=== PATIENT | male | born 1980 | race Caucasian/White ===

== ENCOUNTER 2016-08-26 22:02 | Inpatient (IN) | payer MEDICARE, MEDICAID ==
[2016-08-26] MEDS ORDERED: SODIUM CHLORIDE 0.9% 500 ML IV STA (22:14)
--- NOTE | 2016-08-26 22:17 | ED ---
General Adult HPI - General Chief complaint: Psychiatric Symptoms Stated complaint: Mental Health Time Seen by Provider: 08/26/16 22:04 Source: patient, police, EMS, RN notes reviewed Mode of arrival: EMS Limitations: no limitations - History of Present Illness Initial comments: Patient is a 36-year-old male presenting to the emergency department for mental health evaluation. Onset of symptoms is unclear. Patient recently went to his sister's. Patient left the house and walked around for over 14 hours. Patient returned with increased bizarre behavior. Patient admits to not taking his medication. Patient refused evaluation and fled again. Patient needed to be brought in police custody. Patient denies any injury. Patient will not answer many questions and will only follow some commands. - Related Data Home Medications Medication Instructions Recorded Confirmed QUEtiapine [SEROquel] 50 mg PO DAILY 08/26/16 08/26/16 Allergies Allergy/AdvReac Type Severity Reaction Status Date / Time No Known Allergies Allergy Unverified 08/26/16 22:49 Review of Systems ROS Statement: Those systems with pertinent positive or pertinent negative responses have been documented in the HPI. ROS Other: All systems not noted in ROS Statement are negative. Constitutional: Denies: fever Eyes: Denies: eye pain ENT: Denies: ear pain Respiratory: Denies: cough Cardiovascular: Denies: chest pain Endocrine: Denies: fatigue Gastrointestinal: Denies: abdominal pain Genitourinary: Denies: dysuria Musculoskeletal: Denies: back pain Skin: Denies: rash Neurological: Denies: headache, weakness Psychiatric: Reports: other (Patient will not answer questions) Past Medical History Past Medical History: Unable to Obtain History of Any Multi-Drug Resistant Organisms: Unobtainable Past Surgical History: Unable to Obtain Past Psychological History: Bipolar, Schizoaffective Disorder Smoking Status: Unknown if ever smoked Past Alcohol Use History: Unable to Obtain Past Drug Use History: Unable to Obtain General Exam Limitations: no limitations General appearance: alert, in no apparent distress Head exam: Present: atraumatic Eye exam: Present: normal appearance, PERRL, EOMI ENT exam: Present: mucous membranes dry Neck exam: Absent: tenderness Respiratory exam: Present: normal lung sounds bilaterally Cardiovascular Exam: Present: regular rate, normal rhythm GI/Abdominal exam: Present: soft. Absent: tenderness Extremities exam: Present: normal inspection Neurological exam: Present: alert, other (Only answer some questions. Limits exam.). Absent: motor sensory deficit Psychiatric exam: Present: other (Limited evaluation) Skin exam: Absent: rash Course Vital Signs 08/26/16 08/27/16 22:11 04:13 Temperature 99.4 F 98 F Pulse Rate 110 H 73 Respiratory 20 18 Rate Blood Pressure 125/68 114/57 O2 Sat by Pulse 97 98 Oximetry Medical Decision Making - Medical Decision Making Patient was seen by mental health services, who will admit. Positive clinical certificate completed. - Lab Data Result diagrams: 08/26/16 22:43 08/26/16 22:43 Lab Results 08/26/16 08/26/16 08/27/16 Range/Units 22:43 22:43 00:42 WBC 7.6 (3.8-10.6) k/uL RBC 4.68 (4.30-5.90) m/uL Hgb 14.8 (13.0-17.5) gm/dL Hct 43.5 (39.0-53.0) % MCV 92.9 (80.0-100.0) fL MCH 31.6 (25.0-35.0) pg MCHC 34.0 (31.0-37.0) g/dL RDW 12.8 (11.5-15.5) % Plt Count 170 (150-450) k/uL Neutrophils % 65 % Lymphocytes % 23 % Monocytes % 5 % Eosinophils % 5 % Basophils % 1 % Neutrophils # 5.0 (1.3-7.7) k/uL Lymphocytes # 1.7 (1.0-4.8) k/uL Monocytes # 0.4 (0-1.0) k/uL Eosinophils # 0.4 (0-0.7) k/uL Basophils # 0.1 (0-0.2) k/uL Sodium 140 (137-145) mmol/L Potassium 3.7 (3.5-5.1) mmol/L Chloride 107 (98-107) mmol/L Carbon Dioxide 21 L (22-30) mmol/L Anion Gap 12 mmol/L BUN 13 (9-20) mg/dL Creatinine 1.00 (0.66-1.25) mg/dL Est GFR (MDRD) Af Amer >60 (>60 ml/min/1.73 sqM) Est GFR (MDRD) Non-Af >60 (>60 ml/min/1.73 sqM) Glucose 126 H (74-99) mg/dL Calcium 9.1 (8.4-10.2) mg/dL Urine Opiates Screen Not Detected (NotDetected) Ur Oxycodone Screen Not Detected (NotDetected) Urine Methadone Screen Not Detected (NotDetected) Ur Propoxyphene Screen Not Detected (NotDetected) Ur Barbiturates Screen Not Detected (NotDetected) U Tricyclic Antidepress Not Detected (NotDetected) Ur Phencyclidine Scrn Not Detected (NotDetected) Ur Amphetamines Screen Not Detected (NotDetected) U Methamphetamines Scrn Not Detected (NotDetected) U Benzodiazepines Scrn Not Detected (NotDetected) Urine Cocaine Screen Not Detected (NotDetected) U Marijuana (THC) Screen Not Detected (NotDetected) Serum Alcohol <10 mg/dL Disposition Clinical Impression: Acute psychosis, Acute schizophrenia Disposition: TRANSFER TO PSYCH HOSP/UNIT
[2016-08-26 22:57] LABS: Basophils # (A) 0.1 k/uL (0-0.2); Basophils % (A) 1 %; CH 32.5; CHCM 35.1; Eosinophils # (A) 0.4 k/uL (0-0.7); Eosinophils % (A) 5 %; HCT 43.5 % (39.0-53.0); HDW 2.45; HGB 14.8 gm/dL (13.0-17.5); Luc # (Auto) 0.12; Luc % (Auto) 2; Lymphocytes # (A) 1.7 k/uL (1.0-4.8); Lymphocytes % (A) 23 %; MCH 31.6 pg (25.0-35.0); MCV 92.9 fL (80.0-100.0); Mean Platelet Volume 8.3; Monocytes # (A) 0.4 k/uL (0-1.0); Monocytes % (A) 5 %; Neutrophils % (A) 65 %; RBC 4.68 m/uL (4.30-5.90); RDW 12.8 % (11.5-15.5); WBC 7.6 k/uL (3.8-10.6); WBC (Perox) 7.41
[2016-08-26 23:02] LABS: Alcohol <10 mg/dL; Anion Gap 12 mmol/L; Blood Urea Nitrogen 13 mg/dL (9-20); Calcium 9.1 mg/dL (8.4-10.2); Carbon Dioxide 21 mmol/L (22-30); Chloride 107 mmol/L (98-107); Glucose 126 mg/dL (74-99); Non-African American GFR(MDRD) >60 (>60 ml/min/1.73 sqM); Potassium 3.7 mmol/L (3.5-5.1); Sodium 140 mmol/L (137-145)
[2016-08-27] MEDS ORDERED: MAGNESIUM HYDROXIDE 2,400 MG/10 ML CUP PO PRN (06:15)
[2016-08-27] MEDS: LORazepam 1 MG TAB PO PRN (09:31)
--- NOTE | 2016-08-27 12:39 | P.HP ---
Psychiatric H&P - . H&P Date: 08/27/16 History & Physical: IDENTIFYING DATA: Mr. Hughes is a 36-year-old male who has a history of schizophrenia. HISTORY OF PRESENT ILLNESS: He presented to unit involuntarily. His sister completed a petition/application for hospitalization. The petition read "he quit taking his medications in May 2016. Since then he hears voices telling him to kill himself. He disappears for days and when found he is disoriented and not sure where he is. He sees things that are not there. He is constantly paranoid about everything. He doesn't sleep for days." He would not cooperate with the examination in the emergency department. According to the ED physician's note he attempted to leave the emergency room. He would not make eye contact with the nurse to completed the EPS assessment. The nurse noted in her assessment that he appeared to be responding to internal stimuli. I spoke with his sister on the telephone. She stated that answer Her house 3 days ago. Prior to that he was living with his parents in [facility]. She knows that he stopped taking his medication in May of last year. He's been disorganized confused and paranoid. He stated that he can't return to his mother's house until he receives treatment. When he is consistently taking medication and he "does very well." She is unaware of her of his prior medications or where he had been receiving mental health treatment; she believes it with [facility]. PAST PSYCHIATRIC HISTORY: According to the EPS nurse, he has a history of schizophrenia and multiple past psychiatric hospitalizations. He stated that he has had multiple psychiatric hospitalizations. She believes he was first admitted to a psychiatric hospital when he was 20 or 22 years old. He was enrolled with [facility] until he moved to [facility] through with his sister. PAST MEDICAL HISTORY: She is unaware of medical problems. ALLERGIES: NO KNOWN DRUG ALLERGIES SUBSTANCE USE HISTORY: She stated that he used heroin in the past. She does not think that he has been using heroin lately. He was in [place] for the treatment of his substance use problems. FAMILY PSYCHIATRIC/SUBSTANCE USE HISTORY: He is family history of mental illness. Sister stated that she is bipolar. His mother has a history of bipolar illness and a paternal uncle had a history of schizophrenia. s LEGAL HISTORY: She is unaware of history of legal problems. SOCIAL HISTORY: His born and raised in an intact family. He has 3 sisters. One sister lives in [place] any other [place]. His parents are alive and living together in [facility]. He is from his . They've been "for several years". They have no children together. She believes that he graduated from high school. MENTAL STATUS EXAM: He presented as a restless and disheveled appearing 36-year- old male. He was randomly pacing the unit and ensuring and on other patients and staff. He had no distinguishing features or prominent physical abnormalities. He had a distressed facial expression. He is alert and oriented to person. He was restless and agitated. He had a normal gait and station. His speech was not spontaneous. His affect was dysphoric. I was unable to fully evaluate his thought contact. His thought processes appeared disorganized and incoherent. He appeared to be responding to internal stimuli.. STRENGTHS: Good apparent physical health, supportive family, stable income WEAKNESSES: Poor compliance with mental health care IMPRESSION: He is a 36-year-old male has a history of a schizophrenia. He presented to the unit involuntarily with signs and symptoms of acute psychosis. According to the history obtained by the admitting staff he is been noncompliant with prescribed medications. His speech is of inpatient basis with a combination of multiple therapy and antipsychotic medications. 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 Obtain treatment records from [facility]. Completed the second clinical certificate and proceed with the application for involuntary hospitalization. Continue Geodon 20 mg IM twice a day when necessary for agitation and/or lorazepam 1 mg by mouth/IM every 8 hours when necessary for agitation or Anxiety. He would most likely benefit from a long- acting injectable antipsychotic medication. Allergies Allergy/AdvReac Type Severity Reaction Status Date / Time No Known Allergies Allergy Unverified 08/26/16 22:49 Vital Signs Temp 98 F 08/27/16 04:13 Pulse 79 08/27/16 06:06 Resp 20 08/27/16 06:06 BP 124/64 08/27/16 06:06 Pulse Ox 98 08/27/16 04:13 Intake & Output 08/26/16 08/27/16 08/27/16 18:59 06:59 18:59 Weight 89.721 kg Laboratory Last Values WBC 7.6 k/uL (3.8-10.6) 08/26/16 22:43 RBC 4.68 m/uL (4.30-5.90) 08/26/16 22:43 Hgb 14.8 gm/dL (13.0-17.5) 08/26/16 22:43 Hct 43.5 % (39.0-53.0) 08/26/16 22:43 MCV 92.9 fL (80.0-100.0) 08/26/16 22:43 MCH 31.6 pg (25.0-35.0) 08/26/16 22:43 MCHC 34.0 g/dL (31.0-37.0) 08/26/16 22:43 RDW 12.8 % (11.5-15.5) 08/26/16 22:43 Plt Count 170 k/uL (150-450) 08/26/16 22:43 Neutrophils % 65 % 08/26/16 22:43 Lymphocytes % 23 % 08/26/16 22:43 Monocytes % 5 % 08/26/16 22:43 Eosinophils % 5 % 08/26/16 22:43 Basophils % 1 % 08/26/16 22:43 Neutrophils # 5.0 k/uL (1.3-7.7) 08/26/16 22:43 Lymphocytes # 1.7 k/uL (1.0-4.8) 08/26/16 22:43 Monocytes # 0.4 k/uL (0-1.0) 08/26/16 22:43 Eosinophils # 0.4 k/uL (0-0.7) 08/26/16 22:43 Basophils # 0.1 k/uL (0-0.2) 08/26/16 22:43 Sodium 140 mmol/L (137-145) 08/26/16 22:43 Potassium 3.7 mmol/L (3.5-5.1) 08/26/16 22:43 Chloride 107 mmol/L (98-107) 08/26/16 22:43 Carbon Dioxide 21 mmol/L (22-30) L 08/26/16 22:43 Anion Gap 12 mmol/L 08/26/16 22:43 BUN 13 mg/dL (9-20) 08/26/16 22:43 Creatinine 1.00 mg/dL (0.66-1.25) 08/26/16 22:43 Est GFR (MDRD) Af Amer >60 (>60 ml/min/1.73 sqM) 08/26/16 22:43 Est GFR (MDRD) Non-Af >60 (>60 ml/min/1.73 sqM) 08/26/16 22:43 Glucose 126 mg/dL (74-99) H 08/26/16 22:43 Calcium 9.1 mg/dL (8.4-10.2) 08/26/16 22:43 TSH 2.200 mIU/L (0.465-4.680) 08/26/16 22:43 Urine Opiates Screen Not Detected (NotDetected) 08/27/16 00:42 Ur Oxycodone Screen Not Detected (NotDetected) 08/27/16 00:42 Urine Methadone Screen Not Detected (NotDetected) 08/27/16 00:42 Ur Propoxyphene Screen Not Detected (NotDetected) 08/27/16 00:42 Ur Barbiturates Screen Not Detected (NotDetected) 08/27/16 00:42 U Tricyclic Antidepress Not Detected (NotDetected) 08/27/16 00:42 Ur Phencyclidine Scrn Not Detected (NotDetected) 08/27/16 00:42 Ur Amphetamines Screen Not Detected (NotDetected) 08/27/16 00:42 U Methamphetamines Scrn Not Detected (NotDetected) 08/27/16 00:42 U Benzodiazepines Scrn Not Detected (NotDetected) 08/27/16 00:42 Urine Cocaine Screen Not Detected (NotDetected) 08/27/16 00:42 U Marijuana (THC) Screen Not Detected (NotDetected) 08/27/16 00:42 Serum Alcohol <10 mg/dL 08/26/16 22:43 08/27/16 11:14 08/27/16 12:24 08/27/16 12:32
[2016-08-27] MEDS: NICOTINE 21MG/24HR PATCH TRANSDERM SCH (15:53)
[2016-08-28] MEDS: NICOTINE 21MG/24HR PATCH TRANSDERM SCH (08:03)
[2016-08-28] MEDS ORDERED: WATER FOR INJECTION, STERILE 10 ML IV ONE (12:48)
[2016-08-28] MEDS: ZIPRASIDONE 20 MG VIAL IM PRN (12:49)
[2016-08-28] MEDS: LORazepam 2 MG/ML SYRINGE IM PRN (12:49)
--- NOTE | 2016-08-28 13:38 | P.PN ---
Progress Note - Text SUBJECTIVE: I reviewed the medical record, attempted to interview Mr. Portillo and discuss his treatment and treatment plan during team meeting. He will not stand still to talk. He will not come into my office. He comes to the window at my office door several times during the day and stares. He approached me several times in the hallway asking for a "female razor." He is refusing to take psychotropic medications. OBJECTIVE: He presented as a restless 36-year-old male who is irritable and uncooperative. He spends his time patient hallway and intruding on staff and other patients. His speech is spontaneous but incoherent. His affect is labile. He showed no episodes of behavioral dyscontrol. He didn't express ideas of reference but at times appeared paranoid. His thinking is not organized, coherent and goal directed. He does not appear to be responding to internal stimuli. He received 20 mg of Geodon 1 mg of lorazepam this afternoon after him inappropriately intruding on other patients. ASSESSMENT: He remains grossly psychotic and unchanged from admission. He has no insight into his illness or need for mental health treatment. PLAN: Continue treatment on inpatient unit due to severity of his psychiatric illness and refusal to take psychotropic medications. Involuntary application submitted to probate court and we are waiting the date of the court hearing. Continue Geodon 20 mg IM and/or lorazepam 1 mg IM/by mouth every 8 hours when necessary for agitation. Once we obtain a court order we will begin an antipsychotic that is available as a long-acting injectable.
[2016-08-28 15:12] LABS: Hepatitis B Surface Ag Index 0.07
[2016-08-28 15:17] LABS: Hepatitis B Core IgM Index 0.05
[2016-08-28 15:36] LABS: Hepatitis C Virus IgG Ab Reactive (Negative)
[2016-08-28] MEDS ORDERED: HALOPERIDOL LACTATE 5 MG/ML 1 ML VIAL IM STA (18:49)
[2016-08-28] MEDS ORDERED: LORazepam 2 MG/ML SYRINGE IM STA (18:50)
[2016-08-28] MEDS ORDERED: HALOPERIDOL LACTATE 5 MG/ML 1 ML VIAL ONE (18:52)
[2016-08-28] MEDS: ACETAMINOPHEN TAB 325 MG TAB PO PRN (19:45)
[2016-08-29] MEDS: NICOTINE 21MG/24HR PATCH TRANSDERM SCH (08:41)
[2016-08-29 10:12] LABS: Appearance,Urine Clear (Clear); Bilirubin,Urine Negative (Negative); Glucose,Urine (UA) Negative (Negative); Ketones,Urine Negative (Negative); Leukocyte Esterase,Urine Negative (Negative); Nitrite,Urine Negative (Negative); Protein,Urine Trace (Negative); Specific Gravity,Urine 1.013 (1.001-1.035); UA Billing (MACRO vs. MICRO) CHEM; Urobilinogen,Urine <2.0 mg/dL (<2.0)
[2016-08-29] MEDS: ACETAMINOPHEN TAB 325 MG TAB PO PRN (11:43)
[2016-08-29] MEDS: ZIPRASIDONE 20 MG VIAL IM PRN (12:10)
[2016-08-29] MEDS: LORazepam 2 MG/ML SYRINGE IM PRN (12:11)
--- NOTE | 2016-08-29 16:04 | P.PN ---
Progress Note - Text SUBJECTIVE: I reviewed the medical record, interviewed Mr. Roach and discuss his treatment and treatment plan during team meeting. He has been restless, irritable, intrusive and at times non-directable. He approached me several times during the day and came to the window of my door several times. I am unable to understands his requests because his speech is incoherent. He again declined to start a medication. He stated that he was started taking Haldol "after my court hearing." OBJECTIVE: He presented as a restless 36-year-old male who was casually groomed. He maintained eye contact but didn't appear to attend to the interview. He had a bright facial expression. He was restless and agitated. His speech was spontaneous with increased rate. His affect was labile and at times inappropriate. He did not express ideas reference or paranoid ideation. His thinking was concrete and associations were incoherent and illogical. He did not appear to be responding to internal stimuli. He received 5 mg of haloperidol IM yesterday at 1853 and 20 mg of Geodon IM at 1210 this morning for increasing agitation ASSESSMENT: He remains severely mentally ill showed no significant change in his clinical status since admission. He continues to refuse scheduled dosing of antipsychotic medication. His behaviors at times so disorganized that he requires administration of IM antipsychotic medications and/or benzodiazepines. PLAN: Continue inpatient psychiatric hospitalization for the treatment of acute psychosis and refusal to comply with psychiatric treatment. Discontinue ziprasidone 20 mg IM twice a day when necessary for agitation and begin haloperidol 5 mg IM every 6 hours when necessary for agitation or acute psychosis. Continue lorazepam 1 mg by mouth/IM every 8 hours when necessary for agitation. Continue to talk to him about taking a scheduled dose of an antipsychotic medication. His probate hearing for involuntary hospitalization has been scheduled for 09/03/2016 at 1:30 PM
[2016-08-30] MEDS: MAG HYDROX/AL HYDROX/SIMETH 30 ML CUP PO PRN (03:37)
[2016-08-30] MEDS: NICOTINE 21MG/24HR PATCH TRANSDERM SCH (08:46)
[2016-08-30 11:26] LABS: HIV-1/HIV-2 Ab Screen NONREAC (NON REAC)
--- NOTE | 2016-08-30 15:30 | P.PN ---
Progress Note - Text SUBJECTIVE: I reviewed the medical record, attempted to interview Mr. Roach and discussed his treatment and treatment plan during team meeting. He approached me several times during the day as well as knocked on my door. He repeatedly asked when he would be discharge and appeared as though he did not remember that I told him he has a court hearing next Friday regarding involuntary hospitalization. OBJECTIVE: He presented as casually groomed 36-year-old male who makes intermittent eye contact but does not appear to attend to the interview. He has a labile facial expression consistent with his mood. He is agitated and restless and was often observed pacing the unit. His speech is spontaneous with normal rate and rhythm. His affect is blunted but labile. He does not express suicidal ideation or wishes. He does not respond when I ask questions about psychotic symptoms such as ideas reference, thought insertion, thought broadcasting or thought control. At times he appears paranoid and frightened; other times he appears bright and happy. His thinking is grossly disorganized, incoherent and illogical. He does not appear to be responding to internal stimuli. ASSESSMENT: He remains seriously mentally ill and is shown no response to treatment. He continues to refuse antipsychotic medications. PLAN: Continue inpatient psychiatric hospitalization due to untreated psychosis. Probate hearing is scheduled for 09/03/2016 at 1:30 PM. Begin Haldol 5 mg by mouth daily and document refusal. Continue Haldol 5 mg IM every 6 hours when necessary for agitation and/or lorazepam 1 mg by mouth/IM every 8 hours when necessary for agitation or acute anxiety. Evaluate clinical status and response to treatment daily basis.
[2016-08-30] MEDS: HALOPERIDOL 5 MG TAB PO SCH (15:44)
[2016-08-30] MEDS: LORazepam 1 MG TAB PO PRN (22:01)
[2016-08-31] MEDS: LORazepam 2 MG/ML SYRINGE IM PRN (07:03)
[2016-08-31] MEDS: HALOPERIDOL LACTATE 5 MG/ML 1 ML VIAL IM PRN ×2 (07:03→12:48)
[2016-08-31] MEDS: HALOPERIDOL 5 MG TAB PO SCH (09:42)
[2016-08-31] MEDS: NICOTINE 21MG/24HR PATCH TRANSDERM SCH ×2 (09:42→12:48)
--- NOTE | 2016-08-31 14:46 | P.PN ---
Progress Note - Text Interval history: The patient was seen in library ,still demanding to be discharged ,patient was agitated and irritable at Noon and did require PRN HALDOL AND ATIVAN .He states that he does need to be here "I am not taking medications ,I am not crazy" Mental status exam: The patient is alert he is dressed in street clothing , unkept ,disheveled ,yawning . Eye contact is intermittent. Affect is labile , speech is non spontaneous , denies any current suicidal or homicidal ideation, when asked about psychotic features ,he replied "NOT REALLY ",patient seems sedated from medication ,insight and judgment impaired Plan: The patient will continue on PRN medications till his probate court hearing The patient requires continued psychiatric hospitalization. Vital signs reviewed.
[2016-08-31] MEDS: LORazepam 1 MG TAB PO PRN (17:13)
[2016-09-01] MEDS: HALOPERIDOL 5 MG TAB PO SCH ×2 (08:33→20:26)
[2016-09-01] MEDS: NICOTINE 21MG/24HR PATCH TRANSDERM SCH (08:33)
[2016-09-01] MEDS: LORazepam 1 MG TAB PO PRN (08:34)
--- NOTE | 2016-09-01 10:17 | P.PN ---
Progress Note - Text Interval history: The patient was seen in library ,took his scheduled oral Haldol this morning ,less irritable ,endorses bizarre delusional thinking "I WANT TO HAVE WI-[employer] ,I PAID MY DEBT",still demanding to be discharged but easy to redirect, endorses tiredness and fatigue PER NURSING STAFF: patient was restless and pacing this morning and required PRN ATIVAN Mental status exam: The patient is alert he is dressed in hospital gown,unkept , disheveled ,yawning . Eye contact is intermittent. Affect is blunted,speech is non spontaneous , denies any current suicidal or homicidal ideation , endorses delusional thoughts ,seems responding to internal stimuli ,insight and judgment impaired Plan: Increase scheduled oral Haldol to 5mg BID ,continue PRN Ativan and Haldol for agitation ,court hearing next week The patient requires continued psychiatric hospitalization. Vital signs reviewed.
[2016-09-01] MEDS: MAG HYDROX/AL HYDROX/SIMETH 30 ML CUP PO PRN (14:20)
[2016-09-01] MEDS: LORazepam 2 MG/ML SYRINGE IM PRN (17:05)
[2016-09-01] MEDS: HALOPERIDOL LACTATE 5 MG/ML 1 ML VIAL IM PRN (17:05)
[2016-09-02] MEDS: NICOTINE 21MG/24HR PATCH TRANSDERM SCH (08:45)
[2016-09-02] MEDS: HALOPERIDOL 5 MG TAB PO SCH ×2 (08:45→21:04)
--- NOTE | 2016-09-02 12:57 | P.PN ---
Progress Note - Text SUBJECTIVE: I reviewed the medical record, interviewed Mr. Roach and discuss his treatment and treatment plan during team meeting. He requested to be discharged and talked about his plan to "get my C10 running" and "moved to [place]." He alleged that he has friends with whom he may live in a [facility]. I explained that I cannot discharged today because he has a court hearing tomorrow. After the probate hearing we will begin Haldol decanoate. We may discuss a discharge date after we restart him on the Haldol decanoate. In response to my question about his unwilling to take psychotropic medication he replied that he has "quit smoking." He does not wish to take medications because he wants to be "free from all drugs." OBJECTIVE: He presented as a casually groomed 36-year-old distractable male who was pleasant on approach. He maintained eye contact who had difficulty attending to interview. He had a flat facial expression. He is alert and oriented to person, place and time. He showed no abnormality of psychomotor activity; he was restless and continues to pace the unit. His speech was spontaneous but had a decreased rate and rhythm. He showed poverty of speech and poverty of content of speech. He denied suicidal ideation or wishes. He denied homicidal ideation. He denied depressive cognitions such as hopelessness, helplessness and worthlessness. He did not express ideas reference or paranoid ideation. His thinking was concrete and his associations remaining incoherent and illogical. He denied hallucinations and did not appear to be responding to internal stimuli. He received 1 mg of lorazepam and 5 mg of haloperidol IM yesterday at 1705 for agitation. He took the scheduled 5 mg dose of Haldol yesterday and this morning. The [facility] increased haloperidol 5 mg twice a day over the weekend. ASSESSMENT: He is shown decrease in restlessness but he continues to be distractible, perseverative and confused. Overall he appears severely mentally ill. PLAN: Continue inpatient hospitalization due to continued psychotic symptoms. He has a probate hearing scheduled for tomorrow. Continue current dose of haloperidol 5 mg by mouth twice a day and monitor for side effects. Haloperidol decanoate 50 mg IM after he receives a involuntary treatment order. Continue haloperidol 5 mg IM every 6 hours when necessary for agitation and/ or lorazepam 1 mg by mouth/IM every 8 hours when necessary for agitation. Encourage participation in therapeutic groups and activities. Evaluate clinical status response to treatment on the basis.
[2016-09-02] MEDS: LORazepam 1 MG TAB PO PRN (18:12)
[2016-09-03] MEDS: HALOPERIDOL 5 MG TAB PO SCH ×2 (08:27→22:11)
[2016-09-03] MEDS: NICOTINE 21MG/24HR PATCH TRANSDERM SCH (08:29)
[2016-09-03] MEDS: ACETAMINOPHEN TAB 325 MG TAB PO PRN ×2 (12:56→22:11)
--- NOTE | 2016-09-03 13:55 | P.PN ---
Progress Note - Text SUBJECTIVE: I reviewed the medical record, interviewed Mr. Hughes and discuss his treatment and treatment plan during team meeting. He thought he would be discharged today. He approached me several times inquiring about when he would be discharged. I explained that he has a court hearing this afternoon. After the court hearing we will begin Haldol decanoate then discuss discharge. Later in day he continued to my office with a paper bag and asked "Well, how did the court hearing go?" I explained that he will have his hearing this afternoon and will be present first hand during the hearing. OBJECTIVE: He presented as a casually groomed pleasant 36-year-old male. He maintained eye contact but did not appear to attend to the interview. He had no distinguishing features or prominent physical abnormalities. He had a blunted but bright facial expression. He was restless but not agitated. His speech was spontaneous with normal rate, rhythm and volume. His affect was elevated and appropriate to the circumstances. He denied suicidal or homicidal ideation. He denied depressive cognitions such as hopelessness, helplessness or worthlessness. He ruminated on discharge. He did not express ideas reference or paranoid ideation. His thinking was concrete and associations were not fully coherent or logical. He did not demonstrate blocking. He denied hallucinations and did not appear to be responding to internal stimuli. According to him MAR he was compliant with the both doses of haloperidol yesterday. He went to the probate hearing but decided to waive my testimony and stipulate to the combined treatment order. ASSESSMENT: He is much less agitated, intrusive and impulsive. Overall he remains severely mentally ill but showed a moderate response to treatment. PLAN: Begin haloperidol decanoate 50 mg IM q 28 days first dose today. Continue haloperidol 5 mg by mouth twice a day for now. Encourage participation as much as possible in therapeutic groups and activities. Evaluate clinical status and response to treatment daily basis.
[2016-09-03] MEDS ORDERED: HALOPERIDOL DECANOATE 50 MG/ML 1 ML VIAL IM SCH (14:00)
[2016-09-04] MEDS: LORazepam 1 MG TAB PO PRN ×2 (01:52→09:18)
[2016-09-04] MEDS ORDERED: diphenhydrAMINE 50 MG/ML 1 ML VIAL IM STA (03:13)
[2016-09-04] MEDS: HALOPERIDOL 5 MG TAB PO SCH (09:19)
[2016-09-04] MEDS: NICOTINE 21MG/24HR PATCH TRANSDERM SCH (10:09)
[2016-09-04] MEDS ORDERED: HALOPERIDOL LACTATE 5 MG/ML 1 ML VIAL IM PRN (10:59)
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
[2016-09-04] MEDS ORDERED: LORazepam 2 MG/ML SYRINGE IM PRN (14:21)
[2016-09-04] MEDS ORDERED: BENZOCAINE/MENTHOL LOZENG 1 EACH LOZENGE MUCOUS MEM PRN (15:49)
[2016-09-05] MEDS: LORazepam 1 MG TAB PO PRN (08:02)
[2016-09-05] MEDS: HALOPERIDOL 5 MG TAB PO SCH (08:03)
[2016-09-05] MEDS: NICOTINE 21MG/24HR PATCH TRANSDERM SCH ×2 (08:04→10:39)
--- NOTE | 2016-09-05 13:43 | P.PN ---
Progress Note - Text SUBJECTIVE: I reviewed the medical record, interviewed Mr. Roach and discuss his treatment and treatment plan during team meeting. He received 5 mg of Haldol IM yesterday after refusing oral dose. He took the morning oral dose without incident. He complained about haloperidol. We discussed alternatives and he objected to all other options (for long-acting injectable antipsychotics) including Invega Sustenna, Prolixin Decanoate, Abilify Maintenna. He stated that he only wants to take Ativan; "if I needed an injection give me heroin or ketamine." OBJECTIVE: He presented as a casually groomed 36-year-old male who was pleasant on approach. He maintained eye contact and appeared to attend to interview. He had a blunted facial expression. He showed no abnormality of psychomotor activity. He had no abnormal involuntary movements. His speech was spontaneous with normal rate and volume. His affect was blunted but stable and appropriate. He denied suicidal ideation or wishes. He denied homicidal ideations. He denied depressive cognitions such as hopelessness, helplessness and worthlessness. He ruminated about hospitalization and maintains that he does not need to be in the hospital or require treatment for a mental illness. He did not express ideas reference or paranoid ideation. His thinking is concrete and associations were not coherent or logical. He denied hallucinations and did not appear to be responding to internal stimuli. ASSESSMENT: He appears less restless and intrusive. He has absolutely no insight into his mental illness or need for treatment. PLAN: Continue involuntary hospitalization. Continue haloperidol 5 mg by mouth daily or 5 mg IM if refuses the oral dose. Continue haloperidol decanoate 50 mg IM monthly. Encourage participation in therapeutic groups and activities. Evaluate clinical status response to treatment on a daily basis.
[2016-09-06] MEDS: LORazepam 1 MG TAB PO PRN (05:51)
[2016-09-06] MEDS ORDERED: HALOPERIDOL LACTATE 5 MG/ML 1 ML VIAL IM PRN (07:53)
[2016-09-06] MEDS: HALOPERIDOL 5 MG TAB PO SCH (08:39)
[2016-09-06] MEDS: NICOTINE 21MG/24HR PATCH TRANSDERM SCH (08:39)
--- NOTE | 2016-09-06 13:28 | P.PN ---
Progress Note - Text SUBJECTIVE: I reviewed the medical record, interviewed Joel and discuss his treatment and treatment plan during team meeting. The nurse caught him attempting to cheek his dose of haloperidol this morning. He denied problems; his only concern was discharge. He denied experiencing psychotic symptoms such as auditory or visual hallucinations, ideas of reference, thought insertion, thought broadcasting or thought control. He denied side effects to haloperidol. OBJECTIVE: He presented as a casually groomed 36-year-old male who was pleasant on approach. He maintained eye contact and attended to interview. He had a bright facial expression. He showed no abnormality of psychomotor activity. His speech was spontaneous with normal rate and family and volume. He showed poverty of speech and poverty of content. His affect was blunted but stable and appropriate. He denied suicidal ideation or wishes. He denied homicidal ideation. He denied depressive cognitions such as hopelessness , helplessness and worthlessness. He did not express ideas reference or paranoid ideation. His thinking was concrete but his associations were coherent and logical. He has no awareness or insight to his mental illness or need for mental health treatment. He received 1 mg of lorazepam by mouth this morning for increase agitation. ASSESSMENT: He has no insight or understanding of his illness or need for treatment. Overall he appears moderately mentally ill and is much improved from admission. PLAN: Increase haloperidol to 10 mg daily and administer the second Haldol Decanoate injection early next week then discharged home with recommendation for [facility] aftercare. Nursing to carefully monitor his medication compliance. Encourage participation in therapeutic groups and activities. Evaluate clinical status and response to treatment daily basis.
[2016-09-07] MEDS: NICOTINE 21MG/24HR PATCH TRANSDERM SCH (08:10)
[2016-09-07] MEDS: HALOPERIDOL 5 MG TAB PO SCH (08:10)
[2016-09-07] MEDS: HALOPERIDOL LACTATE 5 MG/ML 1 ML VIAL IM PRN (14:09)
[2016-09-07] MEDS ORDERED: HALOPERIDOL LACTATE 5 MG/ML 1 ML VIAL IM PRN (16:54)
--- NOTE | 2016-09-07 16:56 | P.PN ---
Progress Note - Text SUBJECTIVE: I reviewed the medical record and interviewed Joel. He was again concerned about discharge and requested to be discharged on Friday. I didn't commit to a particular discharge date but told him we would decide on Friday. His only other concern was not being able to smoke cigarettes. He complained of sedation from Haldol. He does not feel restless. He denied auditory or visual hallucinations, ideas reference, thought insertion , thought broadcasting or thought control. OBJECTIVE: He was casually groomed pleasant and cooperative. He maintained eye contact. He showed no abnormality of psychomotor activity. He was not restless or fidgety. He did not demonstrate signs suggestive of akathisia. His speech was spontaneous with decreased rate but normal volume. His affect was blunted but stable and appropriate. He denied suicidal ideation or wishes. He denied homicidal ideation. He denied depressive cognitions such as hopelessness, helplessness and worthlessness. He denied ideas of reference and did not express paranoid ideation. His thinking is very concrete but his associations were coherent and logical. He denied hallucinations and did not appear to be responding to internal stimuli. He received 2 mg of lorazepam by mouth yesterday at 551 for restlessness. ASSESSMENT: He appears mildly mentally ill and he is much improved from admission. He complains of sedation with the current dose of haloperidol but denies other symptoms. PLAN: Decrease Haldol to 5 mg by mouth daily. Continue lorazepam 2 mg by mouth/ IM every 8 hours when necessary for agitation or Anxiety. Administered 50 mg of Haldol Decanoate prior to discharge. Encourage continued participation in therapeutic groups and activities. Evaluate clinical status response to treatment daily basis. Discharge early next week.
[2016-09-08] MEDS: HALOPERIDOL 5 MG TAB PO SCH (08:31)
[2016-09-08] MEDS: NICOTINE 21MG/24HR PATCH TRANSDERM SCH ×2 (08:31→10:44)
[2016-09-08] MEDS: ACETAMINOPHEN TAB 325 MG TAB PO PRN (11:54)
[2016-09-08] MEDS ORDERED: BENZTROPINE 2 MG/2 ML AMP IM STA (14:25)
--- NOTE | 2016-09-08 15:50 | P.PN ---
Progress Note - Text SUBJECTIVE: I reviewed the medical record and interviewed Joel. He asked to "stop taking Haldol". He requested to be described Ativan instead. I explained that my recommendation is that he take an antipsychotic medication that is available as a long-term injectable. I explained the alternatives to Haldol including Prolixin, Invega, Abilify and Risperdal Consta. He Alleged that he is unable to take these alternatives. He denied auditory or visual hallucinations, ideas reference, thought insertion , thought broadcasting or thought control. OBJECTIVE: He was casually groomed pleasant and cooperative. He maintained eye contact. He showed no abnormality of psychomotor activity. He was not restless or fidgety. He did not demonstrate signs suggestive of akathisia. His speech was spontaneous with decreased rate but normal volume. His affect was blunted but stable and appropriate. He denied suicidal ideation or wishes. He denied homicidal ideation. He denied depressive cognitions such as hopelessness, helplessness and worthlessness. He denied ideas of reference and did not express paranoid ideation. His thinking is very concrete but his associations were coherent and logical. He denied hallucinations and did not appear to be responding to internal stimuli. He received 2 mg of lorazepam and 5 mg haloperidol IM yesterday and 1409 for increased agitation Later in the afternoon he experienced acute dystonia that resolved with 1 mg a Cogentin IM. ASSESSMENT: He continues to have periods of agitation dissociating use of when necessary medications. He has no insight or understanding of his mental illness or the need for treatment with antipsychotic medications.. PLAN: Continue Haldol to 5 mg by mouth daily. Begin Cogentin 1 mg by mouth twice a day. Discussed replacing Haldol with Invega. Continue lorazepam 2 mg by mouth/IM every 8 hours when necessary for agitation or Anxiety. Haldol Decanoate 50 mg on 09/09/2016. Encourage continued participation in therapeutic groups and activities. Evaluate clinical status response to treatment daily basis. Discharge early next week.
[2016-09-08] MEDS: BENZTROPINE MESYLATE 1 MG TAB PO SCH (21:12)
[2016-09-08] MEDS: LORazepam 1 MG TAB PO PRN (21:12)
[2016-09-09] MEDS: HALOPERIDOL 5 MG TAB PO SCH (07:35)
[2016-09-09] MEDS: NICOTINE 21MG/24HR PATCH TRANSDERM SCH (07:35)
[2016-09-09] MEDS: BENZTROPINE MESYLATE 1 MG TAB PO SCH ×2 (07:35→19:58)
[2016-09-09] MEDS ORDERED: HALOPERIDOL DECANOATE 50 MG/ML 1 ML VIAL IM STA (08:18)
[2016-09-09] MEDS: LORazepam 1 MG TAB PO PRN (08:43)
--- NOTE | 2016-09-09 11:51 | P.PN ---
Progress Note - Text Pt refused to be seen By Medical.
--- NOTE | 2016-09-09 12:09 | P.PN ---
Progress Note - Text SUBJECTIVE: I reviewed the medical record, interviewed Joel and discuss his treatment and treatment plan during team meeting. He denied problems or concerns other than wishing to be discharged. We talked about the dystonic reaction yesterday and he stated that this happened before with Haldol. I suggested we changed Haldol and either Invega or Abilify. He declined stating that he does well as long as we maintain a "low dose of Haldol." As usual, he denied auditory or visual hallucinations, ideas reference, thought insertion, thought broadcasting or thought control. OBJECTIVE: He was casually groomed pleasant and cooperative. He maintained eye contact. He showed no abnormality of psychomotor activity. He was restless or fidgety. His speech was spontaneous with normal rate and volume. His affect was blunted but stable and appropriate. He denied suicidal ideation or wishes. He denied homicidal ideation. He denied depressive cognitions such as hopelessness, helplessness and worthlessness. He denied ideas of reference and did not express paranoid ideation. His thinking is very concrete but his associations were coherent and logical. He denied hallucinations and did not appear to be responding to internal stimuli. He received 2 mg of lorazepam at 2111 yesterday for increasing anxiety. He denied further dystonic reactions after receiving the 1 mg dose of Cogentin. He denied side effects to the current dose of 1 mg by mouth twice a day. ASSESSMENT: He appears moderately mentally ill and a showed a modest response to treatment. He has no insight or understanding of his mental illness or the need for treatment with antipsychotic medications.. PLAN: Continue Haldol to 5 mg by mouth daily. Continue Cogentin 1 mg by mouth twice a day. Haldol Decanoate 50 mg IM today. Continue lorazepam 2 mg by mouth /IM every 8 hours when necessary for agitation or Anxiety. crime prevention worker to schedule a meeting with his sister; if she thinks that he is at baseline and will discharge him to follow up with [facility]. Encourage continued participation in therapeutic groups and activities. Evaluate clinical status response to treatment daily basis. Discharge early next week.
[2016-09-10 06:16] VITALS: BP 100/62; PULSE 66; RESP 18; TEMP 98
[2016-09-10] MEDS: HALOPERIDOL 5 MG TAB PO SCH (08:23)
[2016-09-10] MEDS: NICOTINE 21MG/24HR PATCH TRANSDERM SCH (08:23)
[2016-09-10] MEDS: BENZTROPINE MESYLATE 1 MG TAB PO SCH (08:23)
[2016-09-10 10:56] VITALS: BMI 28.5
[2016-09-10] MEDS: LORazepam 1 MG TAB PO PRN (12:02)
--- NOTE | 2016-09-10 13:44 | P.DS ---
Providers Date of admission: 08/27/16 05:00 Attending physician: Constantin Gamez MD Consults: 08/27/16 06:15 Consult Physician Routine Consulting Provider: Rea Coello Consult Reason/Comments: H & P and medical follow up Do you want consulting provider notified?: Yes Primary care physician: Stated None - Discharge Diagnosis(es) (1) Schizophrenia in partial remission with history of multiple episodes Current Visit: Yes Status: Chronic Priority: High (2) Poor compliance with medication Current Visit: Yes Status: Chronic Priority: High Hospital Course: Mr. Hughes is a 36-year-old male who has a history of schizophrenia. He presented to unit involuntarily. His sister completed the Petition for hospitalization. The petition read "he quit taking his medications in May 2016. Since then he hears voices telling him to kill himself. He disappears for days and when found he is disoriented and not sure where he is. He sees things that are not there. He is constantly paranoid about everything. He doesn't sleep for days." He would not cooperate with the examination in the emergency department. According to the ED physician's note he attempted to leave the emergency room. He would not make eye contact with the nurse to completed the EPS assessment. The nurse noted in her assessment that he appeared to be responding to internal stimuli. I spoke with his sister on the telephone. She stated that he moved to her house 3 days ago. Prior to that he was living with his parents in [facility]. She knows that he stopped taking his medication in May of last year. He's been disorganized confused and paranoid. He stated that he can't return to his mother's house until he receives treatment. When he is consistently taking medication and he "does very well." She is unaware of his of his prior medications or where he had been receiving mental health treatment ; she believes it with [facility]. According to the EPS nurse, he has a history of schizophrenia and multiple past psychiatric hospitalizations. He stated that he has had multiple psychiatric hospitalizations. She believes he was first admitted to a psychiatric hospital when he was 20 or 22 years old. [facility] until he moved to [facility] through with his sister. We admitted him to the psychiatric unit under care of this property underwriter. We provided a biopsychosocial assessment. He refused to meet with the regional engagement consultant reconsulted for the initial physical exam and medical history. He presented to unit acutely agitated. His management required administration of IM lorazepam and Geodon. He refused antipsychotic medications. He received a 60/90 combined involuntary treatment order following his probate hearing. After the probate hearing, we began Haldol 5 mg daily for treatment of psychotic symptoms. He developed akathisia and sedation when we attempted to increase the dose to 10 mg daily. Once we establish tolerance to Haldol we began Haldol decanoate 50 mg IM. He received 2 injections of Haldol decanoate 50 mg during this hospitalization. He did one episode of acute dystonia affecting his neck that resolved with IM Cogentin. Afterwards, we started Cogentin 1 mg twice a day. He declined the recommendation to change antipsychotic from haloperidol to a second generation antipsychotic such as Abilify or Invega. He began to attend therapeutic groups and activities towards the end of his hospitalization and on the days prior to discharge, therapy staff reported that he was appropriate and engaged appropriately during the group meetings. grain ii farmworker arranged a family meeting with his sister. She reported that he is much better "about 85% back to normal". He will return to her house and long-term plans include placement in an adult foster long term. He has a follow-up appointment with [facility]. Patient Condition at Discharge: Stable Plan - Discharge Summary New Discharge Prescriptions: Benztropine Mesylate [Cogentin] 1 mg PO BID 30 Days Haloperidol [Haldol] 5 mg PO DAILY 30 Days Haloperidol Decanoate [Haldol D] 50 mg IM Q28D #1 vial Nicotine 21Mg/24Hr Patch [Habitrol] 1 patch TRANSDERM DAILY 14 Days Discharge Medication List Benztropine Mesylate [Cogentin] 1 mg PO BID 30 Days 09/10/16 [Rx] Haloperidol Decanoate [Haldol D] 50 mg IM Q28D #1 vial 09/10/16 [Rx] Haloperidol [Haldol] 5 mg PO DAILY 30 Days 09/10/16 [Rx] Nicotine 21Mg/24Hr Patch [Habitrol] 1 patch TRANSDERM DAILY 14 Days 09/10/16 [Rx ] Follow up Appointment(s)/Referral(s): [facility] [Outside] - 09/17/16 2:00 pm (Intake kael/ Alyse 09/17/16 at 2:00 pm. ) None,Stated [Primary Care Provider] - 1-2 days Patient Instructions/Handouts: How to Stop Smoking (DC), Brief Psychotic Disorder (DC) Activity/Diet/Wound Care/Special Instructions: Activity and diet as tolerated. Avoid the use of street drugs and alcohol. Take medications as prescribed. When you are in need of refills on your medications please contact your outpatient medical provider and/or outpatient psychiatrist to have this done. Please go to scheduled outpatient appointment for aftercare. If symptoms return or become worse call the crisis line at and/ or go to the nearest emergency room for an evaluation. Discharge Disposition: HOME SELF-CARE
== END 2016-09-10 13:51 | disposition home or self-care (01) | DRG 885 ==
LOC: EC 22:02 → 3MHU 08-27 05:00
PROVIDERS: ADMIT Psychiatry & Neurology Psychiatry; ATTEND Psychiatry & Neurology Psychiatry
DX: F20.0 Paranoid schizophrenia (principal); G25.71 Drug induced akathisia; Z91.14 Patient's other noncompliance with medication regimen; G24.9 Dystonia, unspecified; T43.4X5A Adverse effect of butyrophenone and thiothixene neuroleptics, initial encounter; Z79.899 Other long term (current) drug therapy; Y92.230 Patient room in hospital as the place of occurrence of the external cause; Z81.8 Family history of other mental and behavioral disorders
CPT/HCPCS: 36415; 80048; 80306; 80320; 81003; 84443; 85025; 86701; 86704; 86705; 86803; 87340; 87389; 99285

== ENCOUNTER 2016-09-13 13:16 | Inpatient (IN) | payer MEDICARE, MEDICAID ==
--- NOTE | 2016-09-13 14:30 | ED ---
General Adult HPI - General Chief complaint: Anxiety Stated complaint: mental health Time Seen by Provider: 09/13/16 14:02 Source: patient, RN notes reviewed Mode of arrival: ambulatory Limitations: no limitations - History of Present Illness Initial comments: 36-year-old male presents emergency Department with chief complaint of anxiety, requesting psychiatric evaluation. Patient states that he does not feel right. Patient states he gets Haldol, Cogentin daily states she's been hearing voices. Patient denies any suicidal or homicidal thoughts. Patient states he is homeless at this time. Patient denies any illicit drug use that he knows of. She denies any alcohol use. Patient has no physical complaints at this time. - Related Data Previous Rx's Medication Instructions Recorded Benztropine Mesylate [Cogentin] 1 mg PO BID 30 Days 09/10/16 Haloperidol Decanoate [Haldol D] 50 mg IM Q28D #1 vial 09/10/16 Haloperidol [Haldol] 5 mg PO DAILY 30 Days 09/10/16 Allergies Allergy/AdvReac Type Severity Reaction Status Date / Time MEAT AdvReac Mild SEE COMMENT Uncoded 09/13/16 14:21 Review of Systems ROS Statement: Those systems with pertinent positive or pertinent negative responses have been documented in the HPI. ROS Other: All systems not noted in ROS Statement are negative. Past Medical History Past Medical History: No Reported History History of Any Multi-Drug Resistant Organisms: None Reported Past Surgical History: Ear Surgery Past Psychological History: Bipolar, Schizoaffective Disorder Smoking Status: Current every day smoker Past Alcohol Use History: Rare Past Drug Use History: None Reported General Exam Limitations: no limitations General appearance: alert, in no apparent distress Head exam: Present: atraumatic, normocephalic, normal inspection Eye exam: Present: normal appearance, PERRL, EOMI. Absent: scleral icterus, conjunctival injection, periorbital swelling ENT exam: Present: normal exam, normal oropharynx, mucous membranes moist, TM's normal bilaterally, normal external ear exam Neck exam: Present: normal inspection, full ROM. Absent: tenderness, meningismus, lymphadenopathy Respiratory exam: Present: normal lung sounds bilaterally. Absent: respiratory distress, wheezes, rales, rhonchi, stridor Cardiovascular Exam: Present: regular rate, normal rhythm, normal heart sounds. Absent: systolic murmur, diastolic murmur, rubs, gallop, clicks Neurological exam: Present: alert, oriented X3, CN II-XII intact Skin exam: Present: warm, dry, intact, normal color. Absent: rash Course Vital Signs 09/13/16 13:21 Temperature 97.1 F L Pulse Rate 82 Respiratory 20 Rate Blood Pressure 125/70 O2 Sat by Pulse 99 Oximetry Medical Decision Making - Lab Data Lab Results 09/13/16 Range/Units 14:50 Urine Opiates Screen Not Detected (NotDetected) Ur Oxycodone Screen Not Detected (NotDetected) Urine Methadone Screen Not Detected (NotDetected) Ur Propoxyphene Screen Not Detected (NotDetected) Ur Barbiturates Screen Not Detected (NotDetected) U Tricyclic Antidepress Not Detected (NotDetected) Ur Phencyclidine Scrn Not Detected (NotDetected) Ur Amphetamines Screen Not Detected (NotDetected) U Methamphetamines Scrn Not Detected (NotDetected) U Benzodiazepines Scrn Not Detected (NotDetected) Urine Cocaine Screen Not Detected (NotDetected) U Marijuana (THC) Screen Not Detected (NotDetected) Disposition Clinical Impression: Acute schizophrenia, Acute psychosis Disposition: ADMITTED IP TO THIS HOSP
[2016-09-13] MEDS ORDERED: MAGNESIUM HYDROXIDE 2,400 MG/10 ML CUP PO PRN (18:35)
[2016-09-13] MEDS ORDERED: MAG HYDROX/AL HYDROX/SIMETH 30 ML CUP PO PRN (18:35)
[2016-09-13] MEDS: BENZTROPINE MESYLATE 1 MG TAB PO SCH (22:09)
[2016-09-14] MEDS: NICOTINE 21MG/24HR PATCH TRANSDERM SCH ×3 (08:35→09:28)
[2016-09-14] MEDS: BENZTROPINE MESYLATE 1 MG TAB PO SCH ×4 (08:35→21:04)
[2016-09-14] MEDS: HALOPERIDOL 5 MG TAB PO SCH ×4 (08:36→21:04)
--- NOTE | 2016-09-14 10:08 | P.HP ---
Psychiatric H&P - . History & Physical: Allergies Allergy/AdvReac Type Severity Reaction Status Date / Time MEAT AdvReac Mild SEE COMMENT Uncoded 09/13/16 14:21 Vital Signs Temp 97.7 F 09/13/16 19:06 Pulse 80 09/13/16 19:06 Resp 20 09/13/16 19:06 BP 117/63 09/13/16 19:06 Pulse Ox 98 09/13/16 18:29 Laboratory Last Values Urine Opiates Screen Not Detected (NotDetected) 09/13/16 14:50 Ur Oxycodone Screen Not Detected (NotDetected) 09/13/16 14:50 Urine Methadone Screen Not Detected (NotDetected) 09/13/16 14:50 Ur Propoxyphene Screen Not Detected (NotDetected) 09/13/16 14:50 Ur Barbiturates Screen Not Detected (NotDetected) 09/13/16 14:50 U Tricyclic Antidepress Not Detected (NotDetected) 09/13/16 14:50 Ur Phencyclidine Scrn Not Detected (NotDetected) 09/13/16 14:50 Ur Amphetamines Screen Not Detected (NotDetected) 09/13/16 14:50 U Methamphetamines Scrn Not Detected (NotDetected) 09/13/16 14:50 U Benzodiazepines Scrn Not Detected (NotDetected) 09/13/16 14:50 Urine Cocaine Screen Not Detected (NotDetected) 09/13/16 14:50 U Marijuana (THC) Screen Not Detected (NotDetected) 09/13/16 14:50 09/14/16 09:58 IDENTIFYING DATA: This is a 36-year-old male who was readmitted to the mental health unit through the emergency room for acute symptoms of psychosis. HPI: The patient was evaluated by the emergency psychiatric nurse. Apparently after discharge on Friday the patient was not able to be found, the police had to locate him to bring him back to his sister's home. He described a plan of getting on a bus and leaving this area. There was report that the patient has had increased symptoms of psychosis and agitation while at his sister's home. While on the mental health unit he did have an extended stay and was ultimately treated with Haldol. He was given a Haldol decanoate injection prior to discharge and was to maintain Haldol 5 mg orally. It is unclear if he has remained compliant with that oral dose. The patient does have an established diagnosis of schizophrenia. Today the patient is agitated he states that he is his own guardian, there is no court order, and he would like to be discharged. He is demanding several medications such as Lamictal, Seroquel, Valtrex, and [place] 3 times a day. He accuses me of "laying a trap "for him to fall into. The patient overall is intrusive, agitated, and continues to demonstrate symptoms of psychosis specifically paranoid and persecutory thinking. PAST PSYCHIATRIC HISTORY: The patient has had numerous inpatient psychiatric admissions beginning at age 20 or 22. He has an established diagnosis of schizophrenia. He was treated with Haldol Decanoate and oral Haldol as noted above. He is on a current mental health treatment order. PMH: None reported ALLERGIES: NO KNOWN DRUG ALLERGIES MEDICATIONS: As above CHEMICAL DEPENDENCY HISTORY: There is report that the patient has used heroin in the past his urine drug screen was negative, he has been in inpatient chemical dependency treatment in the past. FAMILY PSYCHIATRIC HISTORY: There is a family history of mental illness, his sister is known to be bipolar, his mother has bipolar illness in a paternal uncle had schizophrenia FAMILY CHEMICAL DEPENDENCY HISTORY: Unknown SOCIAL HISTORY: The patient is a 36-year-old single male. He was last residing with one of his sisters. He has 3 sisters total. His parents reside in [place] and he states that's where his residence is. He is from his . He has no children. He graduated from high school. MENTAL STATUS EXAM: The patient is alert he is briefly seated for the session and then gets up terminating the interview. He is intrusive he is easily agitated but demonstrates no aggressiveness. Speech is fluent spontaneous mildly pressured at times. Eye contact is staring in nature. He is reporting no acute suicidal or homicidal ideation. He continues to have paranoid and persecutory thoughts regarding clinicians here and his sister. He is endorsing no auditory or visual hallucinations but those could be possible as he is likely to underreport symptoms. Thought process is not well organized. Insight and judgment impaired. Prior to him terminating the session we were not able to assess cognitive ability. STRENGTHS/WEAKNESSES: Strengths: Support from family income weaknesses poor insight into mental health symptoms judgment subsequently impaired INTELLECTUAL FUNCTIONING: Average IMPRESSIONS: [] 1. Schizophrenia, rule out history of opiate use disorder 2. Psychosocial dysfunction due to acute symptoms of psychosis PLAN: The patient has been admitted to the hospital again under an existing treatment order. We will increase the Haldol to 5 mg twice daily continue Cogentin 1 mg twice daily. He will undergo a routine medical consultation. Social work will meet with the patient complete a psychosocial assessment again and begin discharge planning. We will monitor him for safety and encourage his participation in the milieu. We will involve family in his care as he will allow area
--- NOTE | 2016-09-14 11:17 | P.CONS ---
History of Present Illness - Reason for Consult Consult date: 09/14/16 medical management - History of Present Illness This is a 36-year-old male. He states he has a primary care physician in [facility]. He has a past medical history of chronic back pain and neck pain, schizophrenia, tobacco use and dependence, street drug use with past use of heroin. Patient was just discharged from the mental health unit on September 10. Patient states that he is back at the hospital because he needs his medications for his genital herpes, oral herpes and his hydrocodone. He is currently staying with his sister in [place] but lives in [place]. He does follow with [facility]. He states he thinks he is going to get hepatitis and AIDS because hospital is dirty and were not washing needles. Patient is requesting [place] and his herpes medicine be resumed. None are listed on his home medication list. During physical exam patient became very aggressive and started screaming and left the room. Review of Systems All systems: negative Constitutional: Denies chills, Denies fever Eyes: denies blurred vision, denies pain Ears, nose, mouth and throat: Denies headache, Denies sore throat Cardiovascular: Denies chest pain, Denies shortness of breath Respiratory: Denies cough Gastrointestinal: Denies abdominal pain, Denies diarrhea, Denies nausea, Denies vomiting Musculoskeletal: Denies myalgias Integumentary: Denies pruritus, Denies rash Neurological: Denies numbness, Denies weakness Psychiatric: Reports paranoia, Denies anxiety, Denies depression Endocrine: Denies fatigue, Denies weight change Past Medical History Past Medical History: No Reported History Additional Past Medical History / Comment(s): Chronic back and neck pain per patient, genital and oral herpes History of Any Multi-Drug Resistant Organisms: None Reported Past Surgical History: Ear Surgery Past Psychological History: Schizophrenia Smoking Status: Current every day smoker Past Alcohol Use History: Rare Additional Past Alcohol Use History / Comment(s): Patient is a smoker of one to 2 packs per day since he was 14 years of age. He states he occasionally uses street drugs such as heroin. He drinks alcohol occasionally. He is and does not have any children. Past Drug Use History: None Reported - Past Family History Father Additional Family Medical History / Comment(s): Father is alive and patient does not know his medical history. Mother Additional Family Medical History / Comment(s): Mother is alive but patient does not know her medical history. Sister(s) Additional Family Medical History / Comment(s): Patient has 3 sisters and he does not know their medical history. Patient does not have any brothers. Medications and Allergies Allergies Allergy/AdvReac Type Severity Reaction Status Date / Time MEAT AdvReac Mild SEE COMMENT Uncoded 09/13/16 14:21 Physical Exam Vitals: Vital Signs Temp Pulse Pulse Resp BP BP Pulse Ox 09/13/16 19:06 97.7 F 80 20 117/63 09/13/16 18:29 98 F 74 16 120/70 98 Gen: This is a 36-year-old male. He was cooperative until the physical exam was started and patient became very aggressive and angry and screaming and complaining of pain in his neck and left the room.. HEENT: Head is atraumatic, normocephalic. Pupils equal, round. Sclerae is anicteric. NEUROLOGICAL: Patient is awake, alert and oriented x3. Assessment and Plan Plan: 1. Schizophrenia. Patient admitted to the mental health unit. 2. Suspected opiate abuse with drug seeking behavior. No [place] added. 3. Alleged history of genital and oral herpes.. 4. Tobacco use and dependence. Continue nicotine patch. 5. History of street drug use but apparently none recently per patient. 6. Paranoid ideas that he will get hepatitis and AIDS from the hospital. Patient was recently tested for acute hepatitis and HIV which were negative. Impression and plan of care have been directed as dictated by the signing physician. Emily Patricio nurse practitioner acting as scribe for signing physician. Time with Patient: Greater than 30
[2016-09-14] MEDS: HALOPERIDOL 5 MG TAB PO PRN (13:10)
[2016-09-14] MEDS: ACETAMINOPHEN TAB 325 MG TAB PO PRN (23:43)
[2016-09-15] MEDS: HALOPERIDOL 5 MG TAB PO PRN (00:50)
[2016-09-15] MEDS: NICOTINE 21MG/24HR PATCH TRANSDERM SCH (08:33)
[2016-09-15] MEDS: BENZTROPINE MESYLATE 1 MG TAB PO SCH ×2 (08:34→21:04)
[2016-09-15] MEDS: HALOPERIDOL 5 MG TAB PO SCH ×2 (08:34→21:04)
--- NOTE | 2016-09-15 11:06 | P.PN ---
Progress Note - Text Interval history: The patient is found in the hallway he follows me to an interview room. He reports that he did not sleep last night. Appetite is stable. The patient remains intrusive on the mental health unit but it is not demonstrating any aggressiveness. He continues to approach a variety of the medical staff and makes bizarre statements. He informs me today he needs to catch up on his "Nazi literature". He is on a treatment order we have increased his Haldol to 5 mg twice daily he is to receive an injection if he refuses the oral dose. Mental status exam: The patient is alert hygiene grooming fair. He is dressed in his own clothing. Eye contact is staring in nature. He has spontaneous speech he can be verbally intrusive. He can be physically intrusive in terms of violating personal space but has not been touching others or being aggressive. He continues to make bizarre statements that are out of context of the conversation. This will demonstrate some disorganization of thought. He continues to have some disorganized delusions and spontaneously reports that was. Insight and judgment impaired. He maintains a bland affect. No evidence of abnormal involuntary movements. He is oriented to person place day month and year. Plan: The patient will continue on his current medications. The patient appears to have refractory symptoms of psychosis. We will monitor him for safety. Vital signs reviewed. Dr. Gamez will resume the patient's care starting tomorrow.
[2016-09-15] MEDS: ACETAMINOPHEN TAB 325 MG TAB PO PRN (11:51)
[2016-09-16] MEDS: BENZTROPINE MESYLATE 1 MG TAB PO SCH ×2 (09:04→20:14)
[2016-09-16] MEDS: HALOPERIDOL 5 MG TAB PO SCH ×2 (09:04→20:14)
[2016-09-16] MEDS: NICOTINE 21MG/24HR PATCH TRANSDERM SCH (09:04)
--- NOTE | 2016-09-16 15:40 | P.PN ---
Progress Note - Text SUBJECTIVE: I reviewed the medical record, interviewed Mr. Roach and discuss his treatment and treatment plan during team meeting. He alleged self presented to emergency room complaining of back, neck and leg pain. The EPS nurse noted that his thinking was disorganized and illogical. He denied that he was on a court order for that he required mental health treatment. After his discharge on 09/10/2016, his sister reported that he had "disappeared". He denied that he left his sister's home. He complained of back pain and "herpes". He requested to "restart" the medications that had been prescribed to him when he was living in a [facility]. Specifically, he requested prescriptions for hydrocodone and acyclovir. He complained of pain in his back only relieves with hydrocodone. He also complained of herpes lesions around his mouth and his groin area. He pointed to the corners of his mouth but there are no lesions observed. He repeated that he "only needs" prescriptions for the pain and herpes. He denied the need for psychiatric medications. He denied side effects to current dose of haloperidol. He repeatedly asked to be able to "sign a 3 day." He contested my assertion that this admission was involuntary; "I signed in voluntary so I can leave anytime." OBJECTIVE: He presented as a casually groomed 36-year-old male with close cropped hair. He was pleasant on approach and made eye contact. He had no distinguishing features or prominent physical abnormalities. He had no lesions around his mouth. He had a blunted but bright facial expression. He was alert and oriented to person, place and time. He showed no abnormality of psychomotor activity. He had a normal gait and station. He had no abnormal involuntary movements. His speech was spontaneous with decreased rhythm but normal volume. No articulation difficulties. His affect was blunted but bright and stable. He denied suicidal ideation or wishes. He denied homicidal ideation. He denied depressive cognitions such as hopelessness, helplessness and worthlessness. He did not express ideas reference. He perseverated on pain and herpes and maintained that the lesions are present around his mouth even though I expressed the opinion otherwise. His thinking was concrete and his associations were not coherent or logical. He denied hallucinations and did not appear to be responding to internal stimuli during our interview. ASSESSMENT: Overall he appears moderately mentally ill. He has fixed somatic belief about herpes. He has absolutely no insight or understanding of his mental illness or need for treatment PLAN: Continue inpatient hospitalization due to disorganized thinking and fixed delusional beliefs. Continue haloperidol 5 mg by mouth twice a day and Cogentin 1 mg twice a day. Continue discussion from a prior admission regarding treatment with a second generation antipsychotic (he refused to consider treatment with Abilify or Invega). Increase monthly injection of haloperidol decanoate from 50 mg to 100 mg. Obtain collateral information from family. Encourage participation in therapeutic groups and activities. Evaluate clinical status response to treatment on a daily basis.
[2016-09-17] MEDS: HALOPERIDOL 5 MG TAB PO PRN (03:17)
[2016-09-17] MEDS: NICOTINE 21MG/24HR PATCH TRANSDERM SCH (08:49)
[2016-09-17] MEDS: BENZTROPINE MESYLATE 1 MG TAB PO SCH ×2 (08:50→20:54)
[2016-09-17] MEDS: HALOPERIDOL 5 MG TAB PO SCH ×2 (08:50→20:55)
--- NOTE | 2016-09-17 14:41 | P.PN ---
Progress Note - Text SUBJECTIVE: I reviewed the medical record, interviewed Mr. Roach and discuss his treatment and treatment plan during team meeting. His only concern was eating discharged and receiving a prescription for the treatment of a self reported diagnosis of herpes. I explained that the manager medical evaluated him and did not recommend treatment with an antiviral medication. We talked about discharge and aftercare. I informed him that his sister told the social media manager that he may not return to her home. His mother would consider him returning but she does not feel that he has fully recovered. He replied that he plans to "live with my ." He alleged that he is and his 's name is Glenn Roach. He gave me a telephone contact for her. He denied side effects to Haldol. He alleged that he has "done well" when he was taking Seroquel and Lamictal. I explained that I'm concerned about prescribing an oral medication because his history of noncompliance. He again declined recommendation for second-generation long-acting injectable antipsychotic such as Invega or Abilify. OBJECTIVE: He presented as a casually groomed 37-year-old male who was pleasant on approach. She maintained eye contact and appeared to attended to the interview. He had a blunted but bright facial expression. He showed slight psychomotor retardation and decreased associated movements when walking but no abnormal involuntary movements. His speech was spontaneous with normal rate, rhythm and volume. His affect was labile. He denied suicidal ideation or wishes. He denied homicidal ideation. He denied depressive cognitions such as hopelessness, helplessness and worthlessness. He did not express ideas reference or paranoid ideation. His thinking was concrete and his associations were coherent and logical. He perseverated on the need for treatment of herpes. ASSESSMENT: Overall he appears moderately mentally ill and moderately improved from admission. Disposition may be a problem because he may not return to his sister's home and his mother has concerns about his current mental status. PLAN: Continue inpatient hospitalization due to mood lability and somatic preoccupation. Continue Haldol 5 mg by mouth twice a day. Administer Haldol Decanoate 100 mg IM prior to discharge., Clear 5 marital status with family. Discharged to care of his mother and referred to a local [facility] for follow-up mental health services.
[2016-09-17] MEDS: HALOPERIDOL LACTATE 5 MG/ML 1 ML VIAL IM PRN (21:18)
[2016-09-18] MEDS: HALOPERIDOL 5 MG TAB PO SCH ×2 (09:08→21:40)
[2016-09-18] MEDS: BENZTROPINE MESYLATE 1 MG TAB PO SCH ×2 (09:08→21:40)
[2016-09-18] MEDS: NICOTINE 21MG/24HR PATCH TRANSDERM SCH (09:09)
[2016-09-18] MEDS: ACETAMINOPHEN TAB 325 MG TAB PO PRN (10:17)
--- NOTE | 2016-09-18 14:17 | P.PN ---
Progress Note - Text SUBJECTIVE: I reviewed the medical record, interviewed Mr. Roach and discuss his treatment and treatment plan during team meeting. He was angry and irritable. He complained that he has not received his antiviral medications or opiate pain medications. He demanded to be discharged. He maintains that he "signed in voluntarily" and denies that he is under an involuntary treatment order. He again requested that I prescribe Seroquel and Lamictal; "I did well I was taking Seroquel Lamictal." He approached me in the hallway after the interview demanded to be prescribed hydrocodone. We talked about the incident yesterday where received an additional dose Haldol 5 mg by mouth and the 5 mg injection of Haldol. He alleged that he was experiencing "ASHLEY" and needed an injection of Cogentin. According to record, he complained of experiencing adverse effects to Haldol yesterday evening. The nurse note that his behavior was not consistent with known side effects. He was agitated, restless, angry and demanding. Instead of Cogentin, he received an additional dose and injection of Haldol due to agitation. OBJECTIVE: He presented as a casually groomed 36-year-old male who was irritable and restless. He had a labile facial expression. His speech was spontaneous and volume and rhythm fluctuated with his mood. His affect was irritable. He denied suicidal ideation or wishes. He denied homicidal ideation. He did not express feelings of hopelessness, helplessness or worthlessness. He denied psychotic symptoms such as auditory or visual hallucinations, ideas reference, thought insertion, thought broadcasting or thought control. The social security specialist spoke with the person whom he identified as his . She stated she has they are in fact but currently . If he cannot return to his mother's home than she will come to the hospital and take her back to her home in [facility]. ASSESSMENT: Overall he appears moderately mentally ill and moderately improved from admission. He has no insight or understanding of his mental illness and need for mental health treatment. He is seeking prescriptions for narcotic pain medication. PLAN: Continue Haldol 5 mg by mouth twice a day and negotiate transitioning from the oral Haldol to Seroquel. However, continue Haldol Decanoate 100 mg IM monthly due to his history of noncompliance. Social work to coordinate discharge with his . Consult medicine service regarding the need for antiviral treatment and opiate pain medications. Encourage participation in therapeutic groups and activities. Evaluate clinical status response to treatment daily basis.
[2016-09-18] MEDS: HALOPERIDOL LACTATE 5 MG/ML 1 ML VIAL IM PRN (16:55)
[2016-09-18] MEDS ORDERED: HALOPERIDOL LACTATE 5 MG/ML 1 ML VIAL IM STA (17:27)
[2016-09-18] MEDS ORDERED: LORazepam 2 MG/ML SYRINGE IV STA (17:28)
[2016-09-18] MEDS ORDERED: diphenhydrAMINE 50 MG/ML 1 ML VIAL IM STA (17:28)
[2016-09-18] MEDS ORDERED: LORazepam 2 MG/ML SYRINGE IM STA (17:28)
[2016-09-19] MEDS: NICOTINE 21MG/24HR PATCH TRANSDERM SCH (08:33)
[2016-09-19] MEDS: HALOPERIDOL 5 MG TAB PO SCH ×2 (08:33→20:53)
[2016-09-19] MEDS: BENZTROPINE MESYLATE 1 MG TAB PO SCH ×2 (08:33→20:53)
--- NOTE | 2016-09-19 13:00 | P.PN ---
Progress Note - Text SUBJECTIVE: I reviewed the medical record, interviewed Mr. Roach and discuss his treatment and treatment plan during team meeting. He was angry and demanded that I prescribe him oxycodone and then antiviral medication; "call my mother she'll tell you that I take Narco and Valtrex." I explained that we submitted a consult and we will prescribe either medication only with the recommendation of the workday financials consultant. On several other occasions he inappropriately demanded to speak with me even though he saw that I was meeting with other patients. He came to the door and saw thru the window that I was in the office with another patient yet banged on the door and attempted to engage him in conversation. OBJECTIVE: He presented as a casually groomed 36-year-old male who was irritable and restless. He had a labile facial expression. His speech was spontaneous and volume and rhythm fluctuated with his mood. His affect was irritable. He denied suicidal ideation or wishes. He denied homicidal ideation. He did not express feelings of hopelessness, helplessness or worthlessness. He denied psychotic symptoms such as auditory or visual hallucinations, ideas reference, thought insertion, thought broadcasting or thought control. The healthcare social worker and the [facility] liaison have arranged to transfer his mental health care and change of venue for continuation of involuntary treatment order to [facility]. He again refused the evening dose of haloperidol yesterday and received a IM as per the treatment plan. ASSESSMENT: Overall he appears moderately mentally ill and moderately improved from admission. He has no insight or understanding of his mental illness and need for mental health treatment. PLAN: Continue Haldol 5 mg by mouth twice a day and negotiate transitioning from the oral Haldol to Seroquel. Discharge on 09/23/2016 to the care of his . Transfer to mental health treatment and supervision of his involuntary treatment order to [facility]. The web software engineer Haldol Decanoate 100 mg before discharge and discharge with order for 100 mg IM monthly due to his history of noncompliance. Encourage participation in therapeutic groups and activities. Evaluate clinical status response to treatment daily basis.
[2016-09-19] MEDS: ACETAMINOPHEN TAB 325 MG TAB PO PRN (19:53)
[2016-09-20] MEDS: HALOPERIDOL 5 MG TAB PO PRN (01:10)
[2016-09-20] MEDS: BENZTROPINE MESYLATE 1 MG TAB PO SCH ×3 (08:29→21:24)
[2016-09-20] MEDS: NICOTINE 21MG/24HR PATCH TRANSDERM SCH (08:29)
[2016-09-20] MEDS: HALOPERIDOL 5 MG TAB PO SCH ×2 (08:29→21:22)
[2016-09-20] MEDS: lamoTRIgine 25 MG TAB PO SCH (09:29)
--- NOTE | 2016-09-20 12:44 | P.PN ---
Progress Note - Text SUBJECTIVE: I reviewed the medical record, interviewed Mr. Roach and discuss his treatment and treatment plan during team meeting. He again asked about the prescriptions for Narco and "herpes medicine". I explained that to law firm consultant did not recommend either medications. Unlike prior encounters he did not get angry and demanded prescriptions for these medications. He agreed to restart Lamictal for treatment of irritability, restlessness and impulsiveness. OBJECTIVE: He presented as a casually groomed 36-year-old male who was euphoric and restless. He had a bright facial expression. His speech was spontaneous and volume and rhythm fluctuated with his mood. His affect was elevated. He denied suicidal ideation or wishes. He denied homicidal ideation. He did not express feelings of hopelessness, helplessness or worthlessness. He denied psychotic symptoms such as auditory or visual hallucinations, ideas reference, thought insertion, thought broadcasting or thought control. He did not appear to be responding to internal stimuli. He received an additional dose of haloperidol 5 mg early this morning for restlessness ASSESSMENT: Overall he appears moderately mentally ill and moderately improved from admission. He has no insight or understanding of his mental illness and need for mental health treatment. PLAN: Continue Haldol 5 mg by mouth twice a day and negotiate transitioning from the oral Haldol. Considering his history of noncompliance I'll defer transitioning to oral Seroquel. Begin a trial of Lamictal 25 mg daily for treatment of restlessness, irritability and impulsive behavior. Discharge on to the care of his . Transfer to mental health treatment and supervision of his involuntary treatment order to [facility]. Haldol Decanoate 100 mg today and discharge with order for 100 mg IM monthly due to his history of noncompliance. Encourage participation in therapeutic groups and activities. Evaluate clinical status response to treatment daily basis.
[2016-09-20] MEDS ORDERED: HALOPERIDOL DECANOATE 100 MG/ML 1 ML VIAL IM SCH (13:00)
[2016-09-20] MEDS: HALOPERIDOL LACTATE 5 MG/ML 1 ML VIAL IM PRN (21:14)
[2016-09-21] MEDS: BENZTROPINE MESYLATE 1 MG TAB PO SCH ×2 (09:01→19:56)
[2016-09-21] MEDS: HALOPERIDOL 5 MG TAB PO SCH ×2 (09:01→19:56)
[2016-09-21] MEDS: NICOTINE 21MG/24HR PATCH TRANSDERM SCH (09:01)
[2016-09-21] MEDS: lamoTRIgine 25 MG TAB PO SCH (09:03)
[2016-09-21 09:50] VITALS: BMI 28.9
[2016-09-21] MEDS: ACETAMINOPHEN TAB 325 MG TAB PO PRN ×2 (14:01→19:55)
--- NOTE | 2016-09-21 15:48 | P.PN ---
Progress Note - Text Interval History: Patient is seen in cross coverage today for Dr. Gamez. He reports that Haldol he has side effects with and describes a locked feeling. He does describe that the Cogentin helps him with this. He makes reference to wanting to be on Seroquel instead of Haldol. He has also received a Haldol Decanoate injection. He does talk about looking forward to discharge planning on Friday. Mental status exam: He is alert and cooperative with the interview. His speech is, not rapid or pressured. He denies any thoughts of harm to self or others. He does not verbalize any hallucinations. He does not show any current agitation. Thought processes overall are organized. Plan: Maintain current psychotropic medications and monitor for any adverse side effects. We'll continue to cover this patient for Dr. Gamez through the weekend. Monitor for any psychosis symptoms.
[2016-09-22] MEDS: lamoTRIgine 25 MG TAB PO SCH (08:01)
[2016-09-22] MEDS: NICOTINE 21MG/24HR PATCH TRANSDERM SCH (08:01)
[2016-09-22] MEDS: BENZTROPINE MESYLATE 1 MG TAB PO SCH ×2 (08:01→20:08)
[2016-09-22] MEDS: HALOPERIDOL 5 MG TAB PO SCH ×2 (08:01→20:08)
--- NOTE | 2016-09-22 11:58 | P.PN ---
Progress Note - Text Interval history: Patient is seen in cross coverage today for Dr. Gamez. Reports that he only slept about 2-3 hours last night. He seems to be compliant with the psychotropic medications and does not voice any adverse side effects today. Mental status exam: He is alert and cooperative with the interview. His speech is fluent, not rapid or pressured. Thought processes organized. He denies any paranoid thoughts. Relays that his mood as "calm." He denies any thoughts of harm to self or others. He does not show any agitation. Plan: Patient will be maintained on current psychotropic medication regimen. Dr. Gamez will resume care this patient starting tomorrow. Continue to monitor for any psych tropic medication side effects.
[2016-09-22] MEDS: ACETAMINOPHEN TAB 325 MG TAB PO PRN (12:17)
[2016-09-23 00:56] VITALS: BP 116/74; PULSE 92; RESP 18; TEMP 97.9
[2016-09-23] MEDS: HALOPERIDOL 5 MG TAB PO SCH (09:24)
[2016-09-23] MEDS: lamoTRIgine 25 MG TAB PO SCH (09:24)
[2016-09-23] MEDS: BENZTROPINE MESYLATE 1 MG TAB PO SCH (09:24)
[2016-09-23] MEDS: NICOTINE 21MG/24HR PATCH TRANSDERM SCH (09:25)
--- NOTE | 2016-09-23 13:37 | P.DS ---
Providers Date of admission: 09/13/16 18:24 Attending physician: Constantin Gamez MD Consults: 09/13/16 18:35 Consult Physician Routine Consulting Provider: Constantin Hankins Reason/Comments: H and P Do you want consulting provider notified?: Yes 09/17/16 17:01 Consult Physician Routine Consulting Provider: Constantin Hankins Reason/Comments: r/o herpes infection and the need for valtrex. pt has hep c Do you want consulting provider notified?: Yes Primary care physician: Physician Nonstaff - Discharge Diagnosis(es) (1) Poor compliance with medication Status: Chronic Priority: High (2) Schizophrenia in partial remission with history of multiple episodes Status: Chronic Priority: High Hospital Course: He is a 36-year-old male who was readmitted to the mental health unit through the emergency room for acute symptoms of psychosis. After discharge on Friday he left his sister's home. She did not know where he had gone and called the police. The police located him to bring him back to his sister's home. He told the admitting psychiatrist that planned take a bus and leaving this area. There was report that the patient has had increased symptoms of psychosis and agitation while at his sister's home. While on the mental health unit he did have an extended stay and was ultimately treated with Haldol. He was given a Haldol decanoate injection prior to discharge and was to maintain Haldol 5 mg orally. It is unclear if he has remained compliant with that oral dose. The patient does have an established diagnosis of schizophrenia. Today the patient is agitated he states that he is his own guardian, there is no court order, and he would like to be discharged. He is demanding several medications such as Lamictal, Seroquel, Valtrex, and Craig 3 times a day. He accuses me of "laying a trap "for him to fall into. The patient overall is intrusive, agitated, and continues to demonstrate symptoms of psychosis specifically paranoid and persecutory thinking. He has had numerous inpatient psychiatric admissions beginning at age 20 or 22. He has an established diagnosis of schizophrenia. He was treated with Haldol Decanoate and oral Haldol as noted above. He is on a current mental health treatment order. We admitted him to the psychiatric unit under the care of this sheet writer. We provided a biopsychosocial assessment. The biometrics consultant wool shearing supervisor completed initial physical exam and medical history and diagnosed tobacco use/dependence and paranoid ideation about genital and oral herpes, hepatitis and AIDS. He refused to cooperate with the biometrics consultant. We increased the Haldol to 10 mg by mouth twice a day and subsequently increased haloperidol decanoate 100 mg monthly. He participated minimally in therapeutic groups and activities. He spent brief periods of time in groups and was often disruptive. He is internally preoccupied and socially inappropriate. He argued frequently about his legal status, denying that he is under a probate order for involuntary hospitalization and maintaining that he is "voluntary". He was preoccupied with having "genital and oral herpes" and demanded a prescription for an antiviral medication. He repeatedly denied our recommendation to switch from haloperidol to a second generation long-acting antipsychotic such as paliperidone or aripiprazole. He alleged he "did my best" when he was taking a low dose of Seroquel and Lamictal. Given his history of noncompliance we did not concur with an oral antipsychotic but he did agree to Lamictal as long as we prescribed no more than 25 mg daily. His disposition became an issue when neither his mother and his sister stated that they did not want him to return to their home. He revealed that he was but from his . The social security assessor called his . She agreed to allow him to return to her home in [place]. The social security assessor to arrange a change of venue of his probate order to [facility] and scheduled an appointment at their mental health. He received 100 mg of Haldol decanoate IM on 09/21/2016. At time of discharge she denied thoughts of or suicide. He denied auditory or visual hallucinations, ideas reference, thought insertion, thought broadcasting or thought control. He overtly acknowledged compliance with medication and assured us that he will follow-up with community mental health. However, given his history and our experience we doubt that he would continue with oral medications. Patient Condition at Discharge: Stable Plan - Discharge Summary New Discharge Prescriptions: Benztropine Mesylate [Cogentin] 1 mg PO BID 30 Days Haloperidol [Haldol] 5 mg PO BID 30 Days Haloperidol Decanoate [Haldol D] 100 mg IM Q28D 30 Days Nicotine 21Mg/24Hr Patch [Habitrol] 1 patch TRANSDERM DAILY 7 Days lamoTRIgine [LaMICtal] 25 mg PO DAILY 30 Days Discharge Medication List Benztropine Mesylate [Cogentin] 1 mg PO BID 30 Days 09/23/16 [Rx] Haloperidol Decanoate [Haldol D] 100 mg IM Q28D 30 Days 09/23/16 [Rx] Haloperidol [Haldol] 5 mg PO BID 30 Days 09/23/16 [Rx] Nicotine 21Mg/24Hr Patch [Habitrol] 1 patch TRANSDERM DAILY 7 Days 09/23/16 [Rx] lamoTRIgine [LaMICtal] 25 mg PO DAILY 30 Days 09/23/16 [Rx] Follow up App[facility]ment(s[facility]Ref[facility]Other[facility] (w/ Benita on 10/01/16 @ 1pm w/ Crisis Services Team on 09/26/16 @ 1pm w/ Dr. Braxton Hyman on 10/09/16 @ 2:45pm) Nonstaff,Physician [Primary Care Provider] - 1 Week Patient Instructions/Handouts: Schizophrenia (DC), Generalized Anxiety Disorder (ED) Activity/Diet/Wound Care/Special Instructions: No alcohol or street drugs. Take medications as prescribed. Notify the crisis line or your care provider if symptoms worsen. Crisis line no. . Regular diet. Activity as tolerated. Discharge Disposition: HOME SELF-CARE
== END 2016-09-23 09:41 | disposition home or self-care (01) | DRG 885 ==
LOC: EC 13:16 → 3MHU 18:24
PROVIDERS: ADMIT Psychiatry & Neurology Psychiatry; ATTEND Psychiatry & Neurology Psychiatry
DX: F25.9 Schizoaffective disorder, unspecified (principal); F23 Brief psychotic disorder; B00.2 Herpesviral gingivostomatitis and pharyngotonsillitis; A60.00 Herpesviral infection of urogenital system, unspecified; B19.20 Unspecified viral hepatitis C without hepatic coma; F17.200 Nicotine dependence, unspecified, uncomplicated; F41.9 Anxiety disorder, unspecified; Z59.0 Homelessness; Z81.8 Family history of other mental and behavioral disorders; Z91.14 Patient's other noncompliance with medication regimen; Z91.19 Patient's noncompliance with other medical treatment and regimen; F11.10 Opioid abuse, uncomplicated; Z72.89 Other problems related to lifestyle; Z76.5 Malingerer [conscious simulation]; M54.2 Cervicalgia; M54.9 Dorsalgia, unspecified; G89.29 Other chronic pain
CPT/HCPCS: 80306; 82075; 96372; 99285